=== PATIENT | female | born 1975 | race Asian ===

== ENCOUNTER 2018-08-24 10:18 | Emergency (ER) | payer OTHER ==
[~2018-08-24] VITALS: Ht 157.5 cm; Wt 53.1 kg
[~2018-08-24 10:18] MED LIST: IBUPROFEN600 MG ORAL; TRAMADOL HCL50 MG ORAL; ZOFRAN ODT4 MG ORAL
[2018-08-24 10:24] VITALS: BP 127/85
[2018-08-24] MEDS ORDERED: NKM (10:27)
--- NOTE | 2018-08-24 10:35 | NUR ---
ED Nurse Note: Pt. AAOX4. Ambulatory. came in to ED due to feeling weak, dizzy, cough for 4 days. seen by PCP and on z-pack. 97.6 F at the triage. pt. of headache, sorethroat as well. Pt. stated " I get sick usually or 2 days only and this is not normal"
--- NOTE | 2018-08-24 10:40 | Emergency Room Report ---
History of Present Illness General Chief Complaint: Flu Like Symptoms Source: Patient Present Illness HPI Patient is a 42-year-old female presented after increased cough and difficulty breathing. Patient had gradual onset of symptoms. And congestion. Patient had some episodes of vomiting. She denies any fever but had fever several days ago..She has recently been seen by primary care physician who started her on azithromycin. Patient reports having one episode of diarrhea. She denies any yasmin abdominal pain. She reports having prior history of Chikungunya virus. Reports having some residual weakness. Allergies: Coded Allergies: No Known Allergies (Unverified , 05/26/16) Patient History Past Medical History: see triage record Last Menstrual Period: 07/24/18 Reviewed Nursing Documentation: PMH: Agreed; PSxH: Agreed Nursing Documentation-PMH Past Medical History: No Stated History Physical Exam Vital Signs Date Time Temp Pulse Resp B/P (MAP) Pulse Ox O2 Delivery O2 Flow Rate FiO2 08/24/18 10:24 97.5 85 18 127/85 98 Room Air Sp02 EP Interpretation: reviewed, normal General Appearance: normal inspection, well appearing, no apparent distress, alert, GCS 15 Head: atraumatic ENT: normal ENT inspection, hearing grossly normal, normal voice Neck: normal inspection, full range of motion, supple, no bony tend Respiratory: normal inspection, lungs clear, normal breath sounds, no respiratory distress, no retraction, no wheezing Cardiovascular #1: regular rate, rhythm, no edema Gastrointestinal: normal inspection, normal bowel sounds, non tender, soft, no guarding, no hernia Genitourinary: no CVA tenderness Musculoskeletal: normal inspection, back normal, normal range of motion Neurologic: normal inspection, alert, responsive, speech normal Psychiatric: normal inspection, judgement/insight normal, mood/affect normal Skin: normal inspection, normal color, no rash Medical Decision Making Diagnostic Impression: Primary Impression: Viral respiratory infection ER Course Patient presented for upper respiratory cough and congestion. Differential diagnosis include was not limited to asthma, pneumonia,Because of complexity of patient's case laboratory testing and imaging studies were ordered. Laboratory testing was essentially unremarkable. Patient shows no signs of respiratory distress and has no risk for pulmonary embolism. Patient does not show any evidence of severe focal weakness. She appears to have a viral respiratory infection. Influenza studies were negative.The patient is advised to follow up with primary care doctor in 1-2 days. Patient is advised to return if any worsening condition or if any changes in status that are concerning. This report is dictated with [employer] per diem software which may occasionally lead to discrepancies related to use of this software. Last Vital Signs Date Time Temp Pulse Resp B/P (MAP) Pulse Ox O2 Delivery O2 Flow Rate FiO2 08/24/18 10:24 97.5 85 18 127/85 98 Room Air Status: improved Disposition: HOME, SELF-CARE Condition: Stable Scripts Guaifenesin* (ADULT WAL-TUSSIN*) 100 Mg/5 Ml Liquid 10 ML ORAL Q4H, #100 ML Prov: Segundo Edmondson MD 08/24/18 Ondansetron (Zofran) 4 Mg Tablet 4 MG ORAL Q6H PRN for Nausea & Vomiting, #30 TAB 0 Refills Prov: Segundo Edmondson MD 08/24/18 Referrals: NON PHYSICIAN (PCP) Segundo Edmondson MD Aug 24, 2018 10:40
[2018-08-24] MEDS ORDERED: Sodium Chloride 500ML 500 ML IV ONE (10:45)
[2018-08-24 11:17] LABS: BASOPHILS % (AUTO) 0.8 % (0.0-2.0); EOSINOPHILS % (AUTO) 1.2 % (0.0-3.0); HEMATOCRIT 45.6 % (37.0-47.0); HEMOGLOBIN 15.9 G/DL (12.0-16.0); LYMPHOCYTES % (AUTO) 25.3 % (20.0-45.0); MEAN CORPUSCULAR VOLUME 95 FL (80-99); MONOCYTES % (AUTO) 9.6 % (1.0-10.0); NEUTROPHILS % (AUTO) 63.1 % (45.0-75.0); PLATELET COUNT 293 K/UL (150-450); RED BLOOD COUNT 4.78 M/UL (4.20-5.40); RED CELL DISTRIBUTION WIDTH 11.1 % (11.6-14.8); WHITE BLOOD COUNT 6.6 K/UL (4.8-10.8)
[2018-08-24 11:19] LABS: APPEARANCE,URINE CLEAR; BILIRUBIN, URINE NEGATIVE (NEGATIVE); GLUCOSE, URINE (UA) NEGATIVE (NEGATIVE); KETONES,URINE NEGATIVE (NEGATIVE); LEUKOCYTE ESTERASE ,URINE 1+ (NEGATIVE); NITRITE,URINE NEGATIVE (NEGATIVE); PH,URINE 6.5 (4.5-8.0); PROTEIN,URINE NEGATIVE (NEGATIVE); UROBILINOGEN,URINE NORMAL MG/DL (0.0-1.0)
[2018-08-24 11:23] LABS: COLOR,URINE YELLOW
[2018-08-24 11:26] LABS: ANION GAP 7 mmol/L (5-15); BLOOD UREA NITROGEN 10 mg/dL (7-18); CALCIUM 8.6 MG/DL (8.5-10.1); CARBON DIOXIDE 28 MMOL/L (21-32); CHLORIDE 98 MMOL/L (98-107); CREATININE 0.7 MG/DL (0.55-1.30); POTASSIUM 3.6 MMOL/L (3.5-5.1); SODIUM 133 MMOL/L (136-145)
[2018-08-24 11:30] VITALS: BP 124/79
[2018-08-24 11:31] LABS: ALANINE AMINOTRANSFERASE 31 U/L (12-78); ALBUMIN 3.1 G/DL (3.4-5.0); ALBUMIN/GLOBULIN RATIO 0.9 (1.0-2.7); ALKALINE PHOSPHATASE 47 U/L (46-116); ASPARTATE AMINO TRANSFERASE 18 U/L (15-37); BILIRUBIN,TOTAL 0.1 MG/DL (0.2-1.0)
[2018-08-24] MEDS ORDERED: ADULT WAL-100 MG/5 M ORAL (11:48)
[2018-08-24] MEDS ORDERED: ZOFRAN4 MG ORAL (11:48)
[2018-08-24 11:54] VITALS: BP 124/79
--- NOTE | 2018-08-24 11:54 | NUR ---
ED Nurse Note: Pt is clear to be dsicharged by ERMD. Discharge paper and prescription given, pt verbalized understanding of discharge instruction. AOx4, VSS. Wristband and IV removed. Pt ambulated out with steady gait with all belongings.
== END 2018-08-24 11:54 | disposition home or self-care (01) ==
LOC: EMR 10:38
DX: B34.9 Viral infection, unspecified (principal)
CPT/HCPCS: 36415; 80053; 81003; 81025; 85025; 86710; 99284

== ENCOUNTER 2018-11-01 11:43 | Emergency (ER) | payer OTHER ==
[~2018-11-01] VITALS: Ht 160 cm; Wt 53.1 kg
[~2018-11-01 11:43] MED LIST changes: +ADULT WAL-100 MG/5 M ORAL; +NKM; +ZOFRAN4 MG ORAL
--- NOTE | 2018-11-01 12:05 | NUR ---
ED Nurse Note: Pt has been having bodyache and chills x 3 days. Complains that she has diarrhea sometimes. Pain 6/10 poli. AOx4, VSS. Will cont to monitor.
[2018-11-01 12:06] VITALS: BP 112/68
--- NOTE | 2018-11-01 12:24 | Emergency Room Report ---
History of Present Illness General Chief Complaint: Pain Source: Patient Present Illness HPI 43-year-old female patient presents ER complaining of body aches and chills for the past 3 days. Reports subjective fever at home, currently afebrile in ER. Reports is been taking Motrin. Reports that she recently returned from a trip to [place] over week ago for work, states that she has been "running around a lot " since that time and feels "rundown". Reports that she attempted to go back to work yesterday however was not feeling well. Denies vomiting or diarrhea. Denies abdominal pain. Denies chest pain or shortness of breath. Denies other aggravating or relieving factors. Denies past medical history. Denies recent sexual activity. Denies dysuria, hematuria. Allergies: Coded Allergies: No Known Allergies (Unverified , 05/26/16) Patient History Past Medical History: see triage record Last Menstrual Period: 09/2018 Now: No Reviewed Nursing Documentation: PMH: Agreed; PSxH: Agreed Nursing Documentation-PMH Past Medical History: No Stated History Review of Systems All Other Systems: negative except mentioned in HPI Physical Exam Vital Signs Date Time Temp Pulse Resp B/P (MAP) Pulse Ox O2 Delivery O2 Flow Rate FiO2 11/01/18 11:59 98.4 64 18 112/68 98 Room Air Sp02 EP Interpretation: reviewed, normal General Appearance: well appearing, no apparent distress, alert, GCS 15, non- toxic Head: normocephalic, atraumatic Eyes: bilateral eye normal inspection, bilateral eye PERRL ENT: hearing grossly normal, normal pharynx, no angioedema, normal voice, TMs + canals normal, uvula midline, moist mucus membranes Neck: full range of motion, no meningismus, no bony tend Respiratory: lungs clear, normal breath sounds, no rhonchi, no respiratory distress, no accessory muscle use, no wheezing, speaking full sentences Cardiovascular #1: regular rate, rhythm, no edema Gastrointestinal: non tender, soft, no mass, non-distended, no guarding, no rebound, other - Negative Rovsing, negative obturator Genitourinary: no CVA tenderness Musculoskeletal: back normal, digits/nails normal, gait/station normal, normal range of motion, non-tender, no calf tenderness, Yahir's Sign negative Neurologic: alert, oriented x3, responsive, cook ice cream III-XII nml as tested, motor strength/tone normal, sensory intact, cerebellar normal, normal gait, speech normal, other - Negative Kernig, negative Brudzinski Skin: no rash Medical Decision Making PA Attestation Dr. Dillon is my supervising Physician whom patient management has been discussed with. Diagnostic Impression: Primary Impression: Fatigue ER Course Pt. presents to the ED c/o chills and body aches times 3 days. Ddx considered but are not limited to influenza, viral URI, stress, fatigue, infection, gastritis, enteritis, sepsis, meningitis. No meningismus, patient afebrile, low suspicion for meningitis. Negative vomiting, patient denies shortness of breath, no tachycardia, no hemoptysis, low suspicion for PE, does not require PE workup at this time. Vital signs: are WNL, pt. is afebrile ER COURSE: Provide with pain medication IV fluids while in the ER. CBC and CMP unremarkable, no elevation WBCs or LFTs, lites otherwise within normal limits. UA unremarkable, no indications of infection, urine negative. Influenza swab negative Patient likely experiencing fatigue symptoms from recent travel and lack of rest. Advised patient on rest. Take melatonin for jet lag. Take Tylenol for pain symptoms. ER precautions given. Follow-up with primary care provider. DISCHARGE: At this time pt is stable for d/c to home. Patient is resting comfortably, in no acute distress, nontoxic appearing, talking without difficulty. Patient to take medications as instructed Will provide with patient care instructions and any necessary prescriptions. Care plan and follow-up instructions provided. Patient instructed to follow-up with primary care provider in 3 - 5 days. Patient questions asked and answered. Patient reports understanding and agreement to treatment plan. ER precautions given. Patient instructed to return to ER immediately for any new or worsening of symptoms including but not limited to increasing SOB, persistent fever, chest pain, intractable vomiting. - Please note that this Emergency Department Report was dictated using [employer] mill operator technology software, occasionally this can lead to erroneous entry secondary to interpretation by the dictation equipment. Labs Test 11/01/18 12:20 11/01/18 12:40 Urine Color Yellow Urine Appearance Clear Urine pH 7 (4.5-8.0) Urine Specific Happy 1.005 (1.005-1.035) Urine Protein Negative (NEGATIVE) Urine Glucose (UA) Negative (NEGATIVE) Urine Ketones Negative (NEGATIVE) Urine Blood Negative (NEGATIVE) Urine Nitrite Negative (NEGATIVE) Urine Bilirubin Negative (NEGATIVE) Urine Urobilinogen Normal MG/DL (0.0-1.0) Urine Leukocyte Esterase Negative (NEGATIVE) Urine HCG, Qualitative Negative (NEGATIVE) White Blood Count 7.1 K/UL (4.8-10.8) Red Blood Count 4.40 M/UL (4.20-5.40) Hemoglobin 14.1 G/DL (12.0-16.0) Hematocrit 40.7 % (37.0-47.0) Mean Corpuscular Volume 92 FL (80-99) Mean Corpuscular Hemoglobin 31.9 PG (27.0-31.0) Mean Corpuscular Hemoglobin Concent 34.6 G/DL (32.0-36.0) Red Cell Distribution Width 11.3 % (11.6-14.8) Platelet Count 398 K/UL (150-450) Mean Platelet Volume 5.3 FL (6.5-10.1) Neutrophils (%) (Auto) 68.5 % (45.0-75.0) Lymphocytes (%) (Auto) 16.9 % (20.0-45.0) Monocytes (%) (Auto) 10.6 % (1.0-10.0) Eosinophils (%) (Auto) 2.7 % (0.0-3.0) Basophils (%) (Auto) 1.3 % (0.0-2.0) Sodium Level 135 MMOL/L (136-145) Potassium Level 4.2 MMOL/L (3.5-5.1) Chloride Level 99 MMOL/L (98-107) Carbon Dioxide Level 27 MMOL/L (21-32) Anion Gap 9 mmol/L (5-15) Blood Urea Nitrogen 9 mg/dL (7-18) Creatinine 0.7 MG/DL (0.55-1.30) Estimat Glomerular Filtration Rate > 60 mL/min (>60) Glucose Level 101 MG/DL (74-106) Calcium Level 8.8 MG/DL (8.5-10.1) Total Bilirubin 0.4 MG/DL (0.2-1.0) Aspartate Amino Transf (AST/SGOT) 17 U/L (15-37) Alanine Aminotransferase (ALT/SGPT) 31 U/L (12-78) Alkaline Phosphatase 52 U/L (46-116) Total Protein 6.6 G/DL (6.4-8.2) Albumin 3.6 G/DL (3.4-5.0) Globulin 3.0 g/dL Albumin/Globulin Ratio 1.2 (1.0-2.7) Lipase 132 U/L (73-393) Last Vital Signs Date Time Temp Pulse Resp B/P (MAP) Pulse Ox O2 Delivery O2 Flow Rate FiO2 11/01/18 12:06 98.4 64 18 112/68 98 Room Air Status: improved Disposition: HOME, SELF-CARE Condition: Stable Scripts Acetaminophen* (TYLENOL EXTRA STRENGTH*) 500 Mg Tablet 500 MG ORAL Q8H PRN for Prn Headache/Temp > 101, #30 TAB 0 Refills Prov: Silver Raymundo 11/01/18 Referrals: NOT CHOSEN IPA/MD,REFERRING (PCP) Patient Instructions: Fatigue Additional Instructions: Followup with primary care provider in 3 -5 days. Take medications as directed. Drink plenty of fluids. [id number] melatonin for jet lag. Patient questions asked and answered. ER precautions given, patient instructed to return to ER immediately for any new or worsening of symptoms. Silver Raymundo Nov 01, 2018 12:24
[2018-11-01] MEDS ORDERED: Ketorolac 30mg Inj IM ONE (12:30)
[2018-11-01 12:58] LABS: APPEARANCE,URINE CLEAR; BILIRUBIN, URINE NEGATIVE (NEGATIVE); GLUCOSE, URINE (UA) NEGATIVE (NEGATIVE); KETONES,URINE NEGATIVE (NEGATIVE); LEUKOCYTE ESTERASE ,URINE NEGATIVE (NEGATIVE); NITRITE,URINE NEGATIVE (NEGATIVE); PH,URINE 7 (4.5-8.0); PROTEIN,URINE NEGATIVE (NEGATIVE); UROBILINOGEN,URINE NORMAL MG/DL (0.0-1.0)
[2018-11-01 13:06] LABS: COLOR,URINE YELLOW
[2018-11-01 13:13] LABS: BASOPHILS % (AUTO) 1.3 % (0.0-2.0); EOSINOPHILS % (AUTO) 2.7 % (0.0-3.0); HEMATOCRIT 40.7 % (37.0-47.0); HEMOGLOBIN 14.1 G/DL (12.0-16.0); LYMPHOCYTES % (AUTO) 16.9 % (20.0-45.0); MEAN CORPUSCULAR VOLUME 92 FL (80-99); MONOCYTES % (AUTO) 10.6 % (1.0-10.0); NEUTROPHILS % (AUTO) 68.5 % (45.0-75.0); PLATELET COUNT 398 K/UL (150-450); RED CELL DISTRIBUTION WIDTH 11.3 % (11.6-14.8); WHITE BLOOD COUNT 7.1 K/UL (4.8-10.8)
[2018-11-01 13:32] LABS: ANION GAP 9 mmol/L (5-15); BLOOD UREA NITROGEN 9 mg/dL (7-18); CALCIUM 8.8 MG/DL (8.5-10.1); CARBON DIOXIDE 27 MMOL/L (21-32); CHLORIDE 99 MMOL/L (98-107); CREATININE 0.7 MG/DL (0.55-1.30); POTASSIUM 4.2 MMOL/L (3.5-5.1); SODIUM 135 MMOL/L (136-145)
[2018-11-01 13:37] LABS: ALANINE AMINOTRANSFERASE 31 U/L (12-78); ALBUMIN 3.6 G/DL (3.4-5.0); ALBUMIN/GLOBULIN RATIO 1.2 (1.0-2.7); ALKALINE PHOSPHATASE 52 U/L (46-116); ASPARTATE AMINO TRANSFERASE 17 U/L (15-37); BILIRUBIN,TOTAL 0.4 MG/DL (0.2-1.0)
[2018-11-01] MEDS ORDERED: TYLENOL EXTRA500 MG ORAL (14:13)
[2018-11-01 14:37] VITALS: BP 112/68
--- NOTE | 2018-11-01 14:38 | NUR ---
ED Nurse Note: Pt cleared by health care Provider for discharge. DC instructions/prescription was given and explained to pt and verbalized understanding of teachings. All medical deviecs such as ID band IV removed. Pt is AAO x4, ambulatory and left with all personal belongings.
== END 2018-11-01 14:38 | disposition home or self-care (01) ==
LOC: EMR 12:20
DX: R53.83 Other fatigue (principal); M79.10 Myalgia, unspecified site
CPT/HCPCS: 36415; 80053; 81003; 81025; 83690; 85025; 86710; 96360; 96372; 99284; J1885